=== PATIENT | female | born 1980 | race Caucasian/White ===

== ENCOUNTER 2022-04-16 09:42 | Outpatient (CLI) | payer OTHER, SELFPAY ==
[2022-04-16 11:44] LABS: Cholesterol* 176 mg/dL (90-199); Glucose* 80 mg/dL (60-115)
[2022-04-16 11:45] LABS: HDL Cholesterol* 61 mg/dL (>=50); LDL Cholesterol Calculated 101 mg/dL (<100); Triglycerides* 71 mg/dL (40-149)
== END 2022-04-16 09:43 | disposition home or self-care (01) ==
PROVIDERS: PCP Family Medicine; Visit Provider Obstetrics & Gynecology
DX: Z01.419 Encounter for gynecological examination (general) (routine) without abnormal findings (principal); Z13.6 Encounter for screening for cardiovascular disorders; Z13.1 Encounter for screening for diabetes mellitus
CPT/HCPCS: 80061; 82947

== ENCOUNTER 2022-04-23 15:16 | Outpatient (CLI) | payer OTHER, SELFPAY ==
--- NOTE | 2022-04-23 15:20 | CRLHL7_ITS ---
For Patients: As a result of the Cures Act, medical imaging exams and procedure reports are released immediately into your electronic medical record. You may view this report before your referring provider. If you have questions, please contact your health care provider. BILATERAL SCREENING MAMMOGRAM WITH COMPUTER-AIDED DETECTION AND TOMOSYNTHESIS TECHNIQUE: CC and MLO views were obtained. These mammographic images have been obtained using full-field digital technique. These mammographic images were interpreted with the benefit of computer-aided detection. Breast tomosynthesis was used in this interpretation. COMPARISON FILM: 04/10/21, 12/04/19, 11/10/18. FINDINGS: The breasts are extremely dense, which lowers the sensitivity of mammography. IMPRESSION: There is no radiographic evidence for malignancy. ASSESSMENT: BI-RADS Category 2: Benign RECOMMENDATION: Routine screening mammogram in 1 year. A lay language report of this examination will be provided to the patient. REJI MURRY M.D. Diagnostic Radiologist [email or web address] Transcribed: 04/26/2022, 2:[address]/Dictated by: Reji Murry MD @ 04/26/2022 9:17:00 AM (Electronically Signed)
== END 2022-04-23 15:17 | disposition home or self-care (01) ==
PROVIDERS: PCP Family Medicine; Visit Provider Obstetrics & Gynecology
DX: Z12.31 Encounter for screening mammogram for malignant neoplasm of breast (principal); R92.2 Inconclusive mammogram
CPT/HCPCS: 77063; 77067

== ENCOUNTER 2022-12-16 07:34 | Outpatient (CLI) | payer OTHER, SELFPAY | END 2022-12-16 07:35 | disposition home or self-care (01) | LOC: NFLDREF 23:42 | PROVIDERS: PCP Family Medicine; Referring Provider Family Medicine; Visit Provider Obstetrics & Gynecology | DX: N92.1 Excessive and frequent menstruation with irregular cycle (principal) | CPT/HCPCS: 82728 ==

== ENCOUNTER 2022-12-28 13:49 | Inpatient (IN) | payer OTHER, SELFPAY ==
[2022-12-28] VITALS (30 sets, daily range): BP systolic 99–125; BP diastolic 63–86; PULSE 68–95; RESP 11–20; TEMP 36.4–36.9; O2SAT 93–98; BMI 23.0
[2022-12-28] MEDS: CEFAZOLIN 2 GM INJ IVP (08:14)
[2022-12-28 08:29] LABS: Ur HCG Qualitative* Negative (Negative)
[2022-12-28 08:54] LABS: Hemoglobin* 13.8 gm/dL (12.0-16.0)
[2022-12-28] MEDS: SODIUM CHLORIDE 0.9 % (FLUSH) 10 ML SYRINGE IVF (09:00)
[2022-12-28] MEDS: LACTATED RINGERS 1000 ML 1,000 ML 100 ML IV ×3 (09:00→12:40)
[2022-12-28 09:08] LABS: Creatinine* 0.7 mg/dL (0.5-1.5); Est. Creatinine Clearance* 95.17; Estimated Glomerular Filt Rate 111 ml/min
--- NOTE | 2022-12-28 09:43 | W.ANESCHARGE ---
Anesthesia Charges Start Date/Time Anesthesia Start Date: 12/28/22 Anesthesia Start Time: 10:06 Stop Date/Time Anesthesia Stop Date: 12/28/22 Anesthesia Stop Time: 13:19
--- NOTE | 2022-12-28 09:43 | W.PM.NB ---
Nerve Block Nerve Block Time Seen by Provider: 10:16 Date Seen: 12/28/22 Type of block requested by surgeon for post-operative analgesia: TAP Side: bilateral Time out performed: Yes Verification of patient name: Yes Verification of date of : Yes Site marking: site marked Name of person performing procedure: Tati Assistants, if any: Chance Continuous monitoring Was continuous monitoring of O2 sat, B/P, clinical research monitor, recorded every 15 minutes?: Yes Procedure Checklist: sterile prep, needles and gloves Ultrasound guided. Images saved: Yes Medications given in 5ml increments after negative aspiration: Marcaine %: 0.25 mL: 30 Needle gauge: 20 and Exparel mL: 10 Patient tolerated procedure well: Yes Additional comments: Needle noted adjacent to nerve Block Charges Block Charge (with Pro Fee): TAP Bilateral Use of Ultrasound Machine for Block: Yes- US Guidance/pain block
--- NOTE | 2022-12-28 11:29 | SUR.OPER ---
Call placed at approximately 1100am to Zofia lamar Mom, to update that procedure was converted to open r/t presence of adhesions.
--- NOTE | 2022-12-28 12:35 | W.ANESCHARGE ---
Anesthesia Charges Start Date/Time Anesthesia Start Date: 12/28/22 Anesthesia Start Time: 10:06 Stop Date/Time Anesthesia Stop Date: 12/28/22 Anesthesia Stop Time: 13:19
[2022-12-28] MEDS: KETOROLAC 30 MG/ML inj IVP ×2 (12:38→18:56)
[2022-12-28] MEDS: HYDROmorphone 0.5 mg/0.5 ml inj IVP ×2 (13:24→13:44)
--- NOTE | 2022-12-28 13:54 | P.GYNPRC_ITS ---
Procedure Note Date of procedure: 12/28/22 Pre-op diagnosis: Menometrorrhagia, h/o endometriosis, uterine fibroids, h/o LSO Post-op diagnosis: same Procedure: Diagnostic laparoscopy converted to laparotomy, total abdominal hysterectomy, right salpingo oophorectomy, extensive lysis of adhesions. Anesthesia: GETA and other (TAP block) Complications: None. Surgeon: Tiffanie Mohr MD Clerical Production Worker: Myesha Esteban Estimated blood loss (mL): 200 Urine Output (mL): 150 Pathology: specimen obtained, sent to pathology (Uterus, right ovary, right fallopian tube) Condition: stable Disposition: PACU Findings: Extensive, dense and filmy adhesions involving the posterior and left cornual uterine serosa and sigmoid colon and rectum, which obliterated the posterior cul-de-sac. Adhesions between right fallopian tube and right ovary, and between right ovary and posterior lower uterine segment. Thickened peritoneal tissue adherent to the anterior lower uterine segment. Adhesions noted involving the distal ileum near the appendix. Normal-appearing appendix. Uterine weight: 76 g. Procedure Description: After obtaining informed consent, the patient was taken to the operating room where general anesthesia was obtained without difficulty. She was prepared and draped in the normal sterile fashion in the low dorsal lithotomy position. A TAP block was administered by Anesthesia. A Garcia catheter was inserted into the bladder and left to gravity drainage. A medium Graves open-sided speculum was introduced into the vagina. The cervix was visualized and grasped along its anterior lip with a single-toothed tenaculum. The uterus sounded, sound length was 8 cm. The cervix was dilated to a #5 Hegar dilator. A large V-Care uterine manipulator was placed without difficulty. The tenaculum and speculum were removed. I then changed gloves and my attention was turned to the abdomen. A 10 mm vertical incision was then made within the umbilical fold using a scalpel. The subcutaneous tissues were bluntly dissected with a Fiorella clamp to the fascia. A direct entry technique was used to place a 10 mm laparoscopic port with CO2 gas set to a 5 mmHg. The trocar was removed leaving the sleeve in place. The CO2 gas flow was turned to high flow to achieve pneumoperitoneum. Another 10 mm laparoscopic port was placed under direct visualization after 1st incising the skin in the right lower quadrant. The patient was placed in mild Trendelenburg positioning. The 10 mm laparoscope was used then to carefully inspect the abdomen and pelvis with findings noted above. And atraumatic graspers was used to gently manipulate the bowels, uterus, and right tube and ovary. Pictures we re taken for documentation purposes. At this point, it was determined that the dense adhesions involving the sigmoid colon and uterine serosa were too extensive to continue the hysterectomy laparoscopically. The decision was made to proceed instead with laparotomy. All instruments were then removed under visualization. The patient was repositioned in the supine position. A Pfannenstiel skin incision was made with a scalpel along the line of the patient's previous Pfannenstiel scar. This incision was carried down to the underlying layer of fascia with the Bovie. The fascia was incised in the midline and the incision extended laterally. The superior and inferior aspects of the fascial incision were grasped with Kj clamps and the underlying rectus muscles dissected off sharply. The fascial defects from the 2 laparoscopic port sites were identified, and reapproximated with figure of X sutures 0 Vicryl. The rectus muscles were in the midline. The underlying peritoneum was identified and entered bluntly. The peritoneal incision was extended superiorly and inferiorly with good visualization of the bladder. The patient was placed in some mild Trendelenburg positioning. Filmy adhesions between the sigmoid colon and the left pelvic sidewall were taken down sharply to help mobilize the sigmoid colon for retraction. The bowels were carefully packed cephalad as much as possible given the adhesions present, using a large moistened laparotomy sponge. The Alberto O retractor was placed in the incision. This provided excellent visualization of the pelvis. The pelvis was inspected with the findings noted above. A Demond clamp was placed at the right uterine cornua for traction. A perforating towel clamp was placed at the left cornua. The right ureter was identified along its course within the right pelvic sidewall. The left ureter was nonvisualized initially because of the sigmoid adhesions to the left pelvic sidewall. The filmy adhesions between the sigmoid colon epiploic fat and the uterine serosa were taken down sharply with Metzenbaum scissors. As increasingly dense adhesions were encountered, the plane between the sigmoid colon and uterine serosa was developed and sharp and blunt adhesiolysis performed to separate the 2 organs. Rectal tissues were also sharply dissected from the lower uterine segment. In the process, the left broad ligament was opened, and the left ureter identified along its course. There was a thick band of dense adhesion to the left cornua well, that presumably contained the left round ligament and vessels. This was left intact and attention was turned to the right side. The right round ligament was doubly clamped with Kj clamps, transected, and suture ligated with 0 Vicryl. The anterior leaf of the broad ligament was opened to the midline from the right side. The bladder was pushed inferiorly with a sponge stick. The right fallopian tube was elevated with [place] clamp. It was determined that the fallopian tube could not be from the right ovary due to dense adhesions without potential vascular injury to the right infundibulopelvic ligament. The decision was made to take out the right tube and ovary together. A window was made in the right broad ligament. Vic clamps were placed across the right infundibulopelvic ligament which was then transected and doubly suture ligated with 0 Vicryl. Hemostasis was observed. The uterine vessels were skeletonized on the right side. The vessels were clamped across with a Vic and a straight clamp, transected, and suture ligated. Excellent hemostasis was obtained. The right tube and ovary were excised from the uterus and passed off the field. Attention was then turned again to the left side. The anterior peritoneum on the left was sharply dissected in order to further free the bladder on that side from the lower uterine segment. The left ureter was once again identified deep in the pelvis. It was determined that the dense adhesion to the left uterine cornua well likely contained round ligament and vessels. This was clamped across, transected, and suture ligated with 0 Vicryl. The left uterine vessels were skeletonized and then clamped across with Vic clamps, transected, and suture ligated. Excellent hemostasis was obtained. The remaining cardinal and attenuated uterosacral ligament attachments on both sides were clamped with straight Vic clamps adjacent to the lower uterine segment and cervix, transected and suture ligated with 0 Vicryl. Excellent hemostasis was obtained. Two Vic clamps were placed across the vaginal cuff angles. The uterus with attached cervix was then transected and passed off the field. The vaginal cuff angles were fixed with Vic stitches of 0 Vicryl. The intervening vaginal cuff was closed with a [id number] suture of 0 Vicryl. The abdomen and pelvis were then copiously irrigated. Small bleeding vessels were isolated with DeBakey clamps and cauterized for hemostasis. Williams was placed over raw tissue edges for additional hemostasis. All laparotomy sponges and instruments were then removed. The subfascial tissues were carefully inspected and hemostasis assured. The fascia was reapproximated in a running fashion with a looped 0 Maxon suture. The subcutaneous tissues were copiously irrigated and hemostasis assured. The skin was closed in a subcuticular fashion with 4-0 Vicryl at both the 2 laparoscopic port sites and the laparotomy incision. LiquiBand and a dressing were applied. The patient tolerated the procedure well. Sponge, lap, needle, instrument counts were reported as correct x2. The patient was taken to recovery room awake and in stable condition. She received 2 g of IV Ancef preoperatively. This case needs a 22 modifier for difficulty and extensive lysis of adhesions required.
[2022-12-28] MEDS: hydrOXYzine pamoate 25 MG CAPSULE PO (13:57)
[2022-12-28] MEDS: fentaNYL 100 MCG/2 ML inj 50 MCG IVP (14:04)
--- NOTE | 2022-12-28 14:24 | SUR.PHASEI ---
Dr. Mohr was updated about patient's pain. New orders will be given to O.B. patient met discharge criteria per anesthesia
[2022-12-28] MEDS: 0.9 % SODIUM CHLORIDE 1000 ml 1,000 ML 25 ML IV (14:30)
[2022-12-28] MEDS: MORPHINE 1 MG/ML IVPB (15:00)
[2022-12-28] MEDS: PCA IVPB (15:00)
--- NOTE | 2022-12-28 18:46 | PC.NURSE ---
REAL ESTATE LAWYER at 1840 14.8 ml given, 11 completed and 13 attempted
[2022-12-28] MEDS: ACETAMINOPHEN 500 MG TABLET 1000 MG PO (22:05)
[2022-12-29] VITALS (17 sets, daily range): BP systolic 92–105; BP diastolic 59–66; PULSE 66–88; RESP 16–18; TEMP 36.6–36.8; O2SAT 93–98
[2022-12-29] MEDS: SODIUM CHLORIDE 0.9 % (FLUSH) 10 ML SYRINGE IVF (00:56)
[2022-12-29] MEDS: KETOROLAC 30 MG/ML inj IVP ×4 (00:56→18:36)
[2022-12-29] MEDS: ACETAMINOPHEN 500 MG TABLET 1000 MG PO ×4 (04:26→22:32)
[2022-12-29 05:45] LABS: Hemoglobin* 10.8 gm/dL (12.0-16.0)
[2022-12-29 05:55] LABS: Creatinine* 0.5 mg/dL (0.5-1.5); Est. Creatinine Clearance* 133.24; Estimated Glomerular Filt Rate 121 ml/min
[2022-12-29] MEDS: FLUOXETINE HCL 10 MG CAPSULE PO (08:40)
[2022-12-29] MEDS: SIMETHICONE 80 MG TAB.CHEW 160 MG PO ×4 (08:56→22:32)
[2022-12-29] MEDS: OXYCODONE 5 MG TABLET PO ×4 (08:56→21:31)
--- NOTE | 2022-12-29 08:56 | PM.GYNPNPO ---
SHELL SIEVE OPERATOR - A/P Assessment and plan (1) Status post hysterectomy with oophorectomy: Problem details: Total abdominal hysterectomy, right salpingo oophorectomy, extensive lysis of adhesions Status: Acute Postoperative Procedures: Procedures Operation Date: 12/28/22 09:50 Actual Procedure Side Surgeon p Attempted Laparoscopic Hysterectomy converted to Laparotomy, Right Salpingectomy, possible Right Salping-Oopherectomy, Diagnostic Cystoscopy Tiffanie Mohr MD Postoperative day: 1 Postoperative status: doing well Postoperative plan: routine post-op care Time Spent With Patient Time: Total time spent is greater than 50% in coordination of care (as documented) at patient's floor/unit and/or counseling patient: Time with patient: less than 15 minutes SHELL SIEVE OPERATOR- PN:Subj Post-Op Subjective Date Seen: 12/29/22 Post Operative Details: Post-operative day number 1: status post laparoscopy, converted to laparotomy with total abdominal hysterectomy, right salpingo oophorectomy, and extensive lysis of adhesions. She states that she did not sleep well overnight, mostly due to abdominal discomfort. She feels pressure-type pain in the low abdomen across the midline. She denies vaginal bleeding. The Perry catheter was removed last evening, and she has voided 3 times overnight. She does not think she has been passing flatus and has not yet had a bowel movement. Subjective: voiding without difficulty and patient is tolerating oral intake SHELL SIEVE OPERATOR-PN: Obj Exam Physical Exam: Vital signs: Temp Pulse Resp BP Pulse Ox O2 Del Method 97.8 F 66 18 92/59 L 96 Room Air 12/29/22 04:28 12/29/22 04:28 12/29/22 06:30 12/29/22 04:28 12/29/22 06:30 12/29/22 06:30 Constitutional: Constitutional: no acute distress Routine HEENT Exam: Head: Present normal inspection Routine Respiratory Exam: Respiratory: Present CTA bilaterally; Absent crackles, rhonchi or wheezes Routine Cardiovascular Exam: Cardiovascular: Present RRR; Absent murmur Routine Abdominal Exam: Abdominal: Present distended (Mild gaseous distension), normal bowel sounds and soft; Absent tenderness Comments: Incision(s) clean, dry, intact Routine Extremities Exam: Extremities: Present normal inspection; Absent calf tenderness or pedal edema Routine Psychiatric Exam: Psychiatric: Present normal affect Urinary Catheter Management: perry: Cath placed during this visit: yes, but has since been removed by the nurse Reason for continuing: decision to DC catheter Insertion date: 12/28/22 Insertion time: 10:45 Removal date: 12/28/22 Removal time: 22:45 SHELL SIEVE OPERATOR - PN: Obj Data Labs Labs: Laboratory Results - last 24 hr 12/28/22 12/29/22 08:36 05:40 Hgb 13.8 10.8 L Creatinine 0.7 0.5 Estimated Creat Clear 95.17 133.24 Estimated GFR 111 121 Blood Type O Negative Antibody Screen NEGATIVE
--- NOTE | 2022-12-29 18:50 | PC.NURSE ---
Pt.'s POLYETHYLENE COMBINER discontinued at 0930 per primary nurse Loreto. When taking pump off 32.4 mg given since last review. 25 given doses by POLYETHYLENE COMBINER, 38 dose attempts.
[2022-12-30] MEDS: ZOLPIDEM 5 MG TABLET 10 MG PO ×2 (00:01→21:22)
[2022-12-30] MEDS: OXYCODONE 5 MG TABLET PO ×2 (06:08→10:01)
[2022-12-30] MEDS: IBUPROFEN 600 MG TABLET PO ×3 (06:08→18:40)
[2022-12-30] MEDS: SIMETHICONE 80 MG TAB.CHEW 160 MG PO ×3 (06:08→14:13)
--- NOTE | 2022-12-30 07:56 | PC.NURSE ---
Dr. Mohr updated on pt.'s pain control Order received oxycodone to 5-10mg for pain.
[2022-12-30 08:15] VITALS: BP 100/66; BP 110/70; PULSE 70; PULSE 74; RESP 16; TEMP 36.8; O2SAT 94; O2SAT 95
[2022-12-30] MEDS: polyethylene glycoL 3350 17 GM PACK PO (08:32)
[2022-12-30] MEDS: FLUOXETINE HCL 10 MG CAPSULE PO (08:33)
[2022-12-30] MEDS: ACETAMINOPHEN 500 MG TABLET 1000 MG PO ×2 (10:01→21:22)
--- NOTE | 2022-12-30 13:14 | P.GYNPN_ITS ---
JAVASCRIPT APPLICATION DEVELOPER - A/P Assessment and plan (1) Status post hysterectomy with oophorectomy: Problem details: Total abdominal hysterectomy, right salpingo oophorectomy, extensive lysis of adhesions Status: Acute Postoperative Procedures: Procedures Operation Date: 12/28/22 09:50 Actual Procedure Side Surgeon p Attempted Laparoscopic Hysterectomy converted to Laparotomy, Right Salpingectomy, possible Right Salping-Oopherectomy, Diagnostic Cystoscopy Tiffanie Mohr MD Postoperative day: 2 Postoperative status: doing well and marginal pain control (Patient is still in discomfort even after increasing oxycodone to 10mg. She would like to try a different PO medication, will try PO Dilaudid. She does not feel comfortable going home today, concerned about pain and [address] back home. ) Postoperative plan: see orders and ambulate Time Spent With Patient Time: Total time spent is greater than 50% in coordination of care (as documented) at patient's floor/unit and/or counseling patient: Time with patient: 25 - 35 minutes JAVASCRIPT APPLICATION DEVELOPER- PN:Subj Post-Op Subjective Date Seen: 12/30/22 Post Operative Details: Post-operative day number 2: status post TIFFANI, RSO. Subjective: pain not well controlled, ambulating well, voiding without difficulty, patient is tolerating oral intake and passing flatus JAVASCRIPT APPLICATION DEVELOPER-PN: Obj Exam Physical Exam: Vital signs: Temp Pulse Resp BP Pulse Ox O2 Del Method 98.3 F 74 16 110/70 94 Room Air 12/30/22 08:15 12/30/22 08:15 12/30/22 08:15 12/30/22 08:15 12/30/22 08:15 12/30/22 08:15 Narrative: VITAL SIGNS: As noted above. GENERAL APPEARANCE: Alert, cooperative female in no acute distress. MOOD & AFFECT: Normal. ABDOMEN: Soft, non-distended and tender to palpation, no rebound, no guarding. Incisions healing well w/o surrounding erythema, induration or abnormal discharge. EXTREMITIES: Nonedematous. Well perfused. Nontender. Urinary Catheter Management: perry: Cath placed during this visit: yes, but has since been removed by the nurse Reason for continuing: decision to DC catheter Insertion date: 12/28/22 Insertion time: 10:45 Removal date: 12/28/22 Removal time: 22:45
[2022-12-30] MEDS: HYDROmorphone 2 MG TABLET 4 MG PO ×2 (14:13→21:22)
[2022-12-30 21:00] VITALS: BP 102/68; PULSE 74; RESP 16; TEMP 36.8; O2SAT 95
[2022-12-31 00:30] VITALS: BP 98/64; PULSE 65; RESP 16; TEMP 36.7; O2SAT 94
[2022-12-31] MEDS: IBUPROFEN 600 MG TABLET PO ×2 (02:11→08:09)
[2022-12-31] MEDS: HYDROmorphone 2 MG TABLET 4 MG PO ×2 (02:12→08:24)
[2022-12-31 02:17] VITALS: BP 100/65; PULSE 69; RESP 16; TEMP 36.4; O2SAT 95
[2022-12-31] MEDS: ACETAMINOPHEN 500 MG TABLET 1000 MG PO (05:35)
[2022-12-31 07:00] VITALS: BP 121/81; PULSE 64; RESP 16; TEMP 36.6; O2SAT 97
--- NOTE | 2022-12-31 08:08 | PM.GYNDS1 ---
DS: Providers Provider Time Seen by Provider: 08:08 Date Seen: 12/31/22 Date of admission: 12/28/22 13:49 Primary care physician: Breanna Camejo MD Admitting Clinician: Tiffanei Mohr MD Attending Physician on discharge: Myesha Esteban MD Date of Discharge: 12/31/22 DS: Diagnosis Discharge Diagnosis (1) Status post hysterectomy with oophorectomy: Status: Acute Problem details: Total abdominal hysterectomy, right salpingo oophorectomy, extensive lysis of adhesions ELECTRIC ACCOUNTING MACHINE OPERATOR-Discharge Summary Hospital Course Hospital Course Narrative: Patient is a 42 year old admitted on 12/28/22 for elective surgery. Indication for surgery: AUB, pelvic pain. Intraoperative findings were notable for endometriosis, pelvic adhesions. She had an uncomplicated surgery. Postoperative course has been uneventful. Vitals have been stable. She has remained afebrile. Today, on postoperative day 3, she reports the pain is well controlled. She has been able to ambulate Without difficulty. She is tolerating regular diet. She is passing flatus. Garcia catheter has been removed, and she is voiding without difficulty. Time Spent with Patient Time attestation: Total time spent providing and/or coordinating discharge services: Time spent: Less than 30 minutes ELECTRIC ACCOUNTING MACHINE OPERATOR - Exam Physical Exam: Vital signs: Temp Pulse Resp BP Pulse Ox O2 Del Method 97.6 F 69 16 100/65 95 Room Air 12/31/22 02:17 12/31/22 02:17 12/31/22 02:17 12/31/22 02:17 12/31/22 02:17 12/31/22 02:17 Narrative: VITAL SIGNS: As noted above. GENERAL APPEARANCE: Alert, cooperative female in no acute distress. MOOD & AFFECT: Normal. ABDOMEN: Soft, non-distended and appropriately tender, incisions healing well w/o surrounding erythema, induration or abnormal discharge : Minimal spotting. EXTREMITIES: Nonedematous. Well perfused. Nontender. ELECTRIC ACCOUNTING MACHINE OPERATOR - DS: Data Procedures Procedures: Procedures Operation Date: 12/28/22 09:50 Actual Procedure Side Surgeon p Attempted Laparoscopic Hysterectomy converted to Laparotomy, Right Salpingectomy, possible Right Salping-Oopherectomy, Diagnostic Cystoscopy Tiffanie Mohr MD Complications: none Discharge Plan Discharge Disposition: Home, Self-Care Date of Admission: 12/28/22 13:49 Attending Provider on Discharge: Myesha Esteban Primary Care Provider: Breanna Camejo Condition: Stable Anticipated Discharge Date/Time: 12/31/22 08:12 Discharge Medications: New ibuprofen 600 mg Tablet 600 mg PO Q6H Qty: 30 0RF oxycodone 5 mg Tablet 5 mg PO Q6H PRN (Reason: Moderate Pain) Qty: 20 0RF docusate sodium [Colace] 100 mg capsule 100 mg PO DAILY Qty: 30 0RF ondansetron 4 mg tablet,disintegrating 4 mg PO Q8H PRN (Reason: nausea and vomiting) 5 Days Qty: 14 0RF acetaminophen 500 mg Tablet 1,000 mg PO Q6H PRNQty: 30 0RF hydromorphone 2 mg Tablet 4 mg PO Q6H PRN (Reason: Post op pain) Qty: 15 0RF simethicone 80 mg Tablet,Chewable 160 mg PO Q4H PRN (Reason: gas) Qty: 15 0RF Continued multivitamin [Multiple Vitamins] Tablet 1 tab PO QAM omega-3 fatty acids 1,000 mg capsule 1,000 mg PO QDAY Collagen Plus Vitamin C 125-740 mg capsule 1 cap PO DAILY fexofenadine [Meka Allergy] 60 mg tablet 60 mg PO BID fluoxetine 10 mg capsule 10 mg PO QDAY Qty: 30 2RF Rx Instructions: Take one capsule orally for 7-10 days each month, starting mid cycle. Discontinued ibuprofen 400 mg tablet 400 mg PO Q8H peg 3350-electrolytes [Golytely] 236-22.74-6.74 -5.86 gram recon soln 240 ml PO Q15M Qty: 4000 0RF Rx Instructions: until fecal effluent is clear Discharge Orders: Discharge Order (Routine); Ordered 12/31/22 Ordered By: Myesha Esteban Patient Education: Surgical Site Infections (DC) Additional Instructions: Discharge instructions were reviewed with the patient including signs and symptoms of infection and medications to use for pain.? ? No lifting greater than 20 pounds for 6 weeks. Nothing per vagina for 6 weeks. Off work or school for 6 weeks. ? Follow up with your surgeon in 2 weeks for incision check and 6 weeks for a postoperative visit or sooner as needed. Activity Level: Activity as Tolerated and No Weight Bearing Discharge Diet: Regular Follow Up Appointments: Breanna Camejo MD [Primary Care Provider] - Forms: Fits[employer]me Info Instructions
[2022-12-31] MEDS: FLUOXETINE HCL 10 MG CAPSULE PO (08:10)
== END 2022-12-31 10:05 | disposition home or self-care (01) | DRG 743 ==
LOC: SS 12-29 11:30 → OB 12-29 11:30
PROVIDERS: Admitting Provider Obstetrics & Gynecology; PCP Family Medicine; Visit Provider Obstetrics & Gynecology
PROC: 0UT94ZZ Resection of Uterus, Percutaneous Endoscopic Approach (ICD-10-PCS; principal; 2022-12-28 09:30)
DX: N92.1 Excessive and frequent menstruation with irregular cycle (principal); Z53.31 Laparoscopic surgical procedure converted to open procedure; N73.6 Female pelvic peritoneal adhesions (postinfective); R10.2 Pelvic and perineal pain; D25.1 Intramural leiomyoma of uterus; D25.0 Submucous leiomyoma of uterus; D25.2 Subserosal leiomyoma of uterus; N83.201 Unspecified ovarian cyst, right side; G89.18 Other acute postprocedural pain
CPT/HCPCS: 00840; 36415; 64488; 76942; 81025; 82565; 85018; 86850; 86900; 86901; 88309; A9270; C9290; J0330; J0665; J0690; J1100; J1170; J1885; J2250; J2270; J2371; J2405; J2704; J3010; J3475; J3490; J7030; J7120

== ENCOUNTER 2023-01-14 11:01 | Outpatient (CLI) | payer OTHER, SELFPAY | END 2023-01-14 11:02 | disposition home or self-care (01) | LOC: NFLDREF 14:46 | PROVIDERS: PCP Family Medicine; Referring Provider Family Medicine; Visit Provider Obstetrics & Gynecology | DX: R35.0 Frequency of micturition (principal); E89.40 Asymptomatic postprocedural ovarian failure | CPT/HCPCS: 87086 ==

== ENCOUNTER 2023-02-21 13:25 | Outpatient (CLI) | payer OTHER, SELFPAY ==
--- NOTE | 2023-02-21 14:00 | CRLHL7_ITS ---
For Patients: As a result of the Century Cures Act, medical imaging exams and procedure reports are released immediately into your electronic medical record. You may view this report before your referring provider. If you have questions, please contact your health care provider. Indication: PERSISTENT A/P PAIN S/P HYSTERECTOMY Technique: Postcontrast CT abdomen and pelvis. 66 cc Isovue 370 intravenous contrast. Oral water. Please note that all CT scans at this facility use dose modulation, iterative reconstruction, and/or weight-based dosing when appropriate to reduce radiation dose to as low as reasonably achievable. Comparison: None Findings: Postoperative changes of hysterectomy. No free fluid, free air or abscess. No abdominal wall hernia. Mild dependent atelectasis in both lung bases. Incidental focal fat deposition within the liver adjacent to the falciform ligament is noted. The gallbladder is normal. No biliary obstruction. No calcified gallstones. The pancreas is normal. Normal spleen. Adrenal glands normal. Normal kidneys. No adenopathy. No venous thrombus. No hiatal hernia. No adnexal mass. No fracture. The bladder is incompletely distended. Impression: Postop changes hysterectomy. No abdominal wall hernia or fluid collection. No abscess. No postop complication. Please note that all CT scans at this facility use dose modulation, iterative reconstruction, and/or weight-based dosing when appropriate to reduce radiation dose to as low as reasonably achievable. Dictated by Reji Gould MD @ 02/23/2023 10:01:03 AM (Electronically Signed)
== END 2023-02-21 13:26 | disposition home or self-care (01) ==
LOC: CT 13:26
PROVIDERS: PCP Family Medicine; Visit Provider Obstetrics & Gynecology
DX: R10.9 Unspecified abdominal pain (principal); Z90.710 Acquired absence of both cervix and uterus; Z90.721 Acquired absence of ovaries, unilateral
CPT/HCPCS: 74177; Q9967

== ENCOUNTER 2023-05-11 13:41 | Outpatient (CLI) | payer OTHER, SELFPAY ==
--- NOTE | 2023-05-11 14:00 | CRLHL7_ITS ---
For Patients: As a result of the Century Cures Act, medical imaging exams and procedure reports are released immediately into your electronic medical record. You may view this report before your referring provider. If you have questions, please contact your health care provider. BILATERAL SCREENING MAMMOGRAM WITH COMPUTER-AIDED DETECTION AND TOMOSYNTHESIS TECHNIQUE: CC and MLO views were obtained. These mammographic images have been obtained using full-field digital technique. These mammographic images were interpreted with the benefit of computer-aided detection. Breast Tomosynthesis was used in this interpretation. COMPARISON FILM: 04/23/22, 06/10/20, 11/10/18. FINDINGS: The breasts are heterogeneously dense, which may obscure small masses IMPRESSION: There is no radiographic evidence for malignancy. ASSESSMENT: BI-RADS Category 2: Benign RECOMMENDATION: Routine screening mammogram in 1 year. A lay language report of this examination will be provided to the patient. Reji Gould M.D. Diagnostic Radiologist [email or web address] JANET/Dictated by: Reji Gould MD @ 05/12/2023 8:53:00 AM (Electronically Signed)
== END 2023-05-11 13:42 | disposition home or self-care (01) ==
PROVIDERS: PCP Family Medicine; Visit Provider Obstetrics & Gynecology
DX: Z12.31 Encounter for screening mammogram for malignant neoplasm of breast (principal); R92.2 Inconclusive mammogram
CPT/HCPCS: 77063; 77067

== ENCOUNTER 2023-06-27 13:00 | Outpatient (RCR) | payer OTHER, SELFPAY | END 2023-10-05 10:20 | disposition home or self-care (01) | PROVIDERS: PCP Family Medicine; Visit Provider Obstetrics & Gynecology | DX: R27.8 Other lack of coordination (principal); N39.3 Stress incontinence (female) (male); Z51.89 Encounter for other specified aftercare | CPT/HCPCS: 97110; 97163; 97535 ==